=== PATIENT | female | born 1970 | race Caucasian/White ===

== ENCOUNTER 2020-04-06 23:18 | Emergency (ER) | payer SELFPAY ==
[2020-04-06 23:26] VITALS: BP 163/97; PULSE 96; RESP 14; TEMP 36.1; O2SAT 98; BMI 30.9
--- NOTE | 2020-04-06 23:29 | XR_ITS ---
WS: [id number] LEFT FOOT: 3 VIEW(S) TECHNIQUE: AP, oblique and lateral. HISTORY: pain COMPARISON: 02/25/2018 No acute fracture or dislocation. Moderate degenerative changes at the first metatarsophalangeal joint with a remote avulsion fracture versus osteophyte involving the proximal first toe. Similar to the prior study. Moderate size calcane al spur. No soft tissue abnormality or bone destruction. XR/XR foot LT min 3V* [id number] IMPRESSION: No acute fracture identified.
[2020-04-06 23:35] VITALS: BP 164/104; PULSE 100; RESP 22; TEMP 36.7
--- NOTE | 2020-04-06 23:47 | W.ED.LOWEXIN ---
HPI - Extremity Injury (Lower) General: Chief Complaint: Extremity Injury, Lower Stated Complaint: foot pain Time Seen by Provider: 04/06/20 23:27 Source: patient Mode of arrival: ambulatory Limitations: no limitations History of Present Illness: HPI Narrative: had three metal shelves fall onto foot earlier today while at work MD complaint: foot injury Onset (ago): hour(s) Injury: Left: foot Type of Injury: blunt Place: work Severity: severe Relieving factors: nothing Exacerbating factors: weight bearing, movement and palpation Context: direct blow Associated symptoms: Reports no associated symptoms Other symptoms: none Treatments prior to arrival: other (tramadol, tylenol, ice, elevation) Review of Systems Musc: Reports: extremity pain (L foot) [facility] PFSH: Medical History (Updated 04/06/20 @ 23:52 by CYNDI Rivera) Anxiety disorder Social History Smoking and tobacco status: current every day smoker Physical Exam Const: COMMON NORMALS: patient oriented x3, no limitations and alert GENERAL APPEARANCE: cooperative and in distress (in pain) Extremity: OTHER: TTP over R 1st MCP joint Neuro: COMMON NORMALS: patient oriented x3 and no sensory deficits noted SENSORIUM/ORIENTATION: Yes alert Skin: COMMON NORMALS: no rashes or lesions noted GENERAL SKIN EXAM: no rashes or lesions noted Course Vital Signs: Vital signs: Vital Signs Temperature 98.0 F 04/06/20 23:35 Pulse Rate 100 04/06/20 23:35 Respiratory Rate 22 H 04/06/20 23:35 Blood Pressure 164/104 04/06/20 23:35 Pulse Oximetry 98 04/06/20 23:26 MDM - Extremity Injury (Lower) Imaging Data^: R foot XR: My impression: no acute fxs visualized; she does have old fx to affected area from 2018 but I do not see any acute changes today Discharge Plan Discharge Patient Disposition: Home, Self-Care Clinical Impression: Crush injury of left foot Qualifiers: Encounter type: initial encounter Qualified Code(s): S97.82XA - Crushing injury of left foot, initial encounter Condition: Stable Prescriptions: New hydrocodone-acetaminophen 5-325 mg tablet 1 tab PO Q6H PRN (Reason: pain) Qty: 10 RF: 0 No Action alprazolam 0.5 mg tablet 0.5 mg PO TID PRN (Reason: anxiety) 30 Days Qty: 70 RF: 1 Discharge Orders: Discharge Order (Routine); Ordered 04/06/20 Ordered By: Bharti Katz Referrals: Fermin Francois MD [Primary Care Provider] - Activity Restrictions/Additional Instructions: Please follow up with primary care next week for continued or worsening pain. Weight bearing as tolerated. Continue to ice and elevate as much as possible. Coding Level of Care Code ED Center Medical Director for Maki Barron
[2020-04-07] MEDS: ketorolac 60 mg/2 mL INJ IM (00:14)
[2020-04-07] MEDS: HYDROcodone-acetaminophen 5-325 mg Tablet 1 TAB PO (00:14)
== END 2020-04-07 00:28 | disposition home or self-care (01) ==
PROVIDERS: Emergency Provider Physician Assistant; PCP Family Medicine
DX: S97.82XA Crushing injury of left foot, initial encounter (principal); W20.8XXA Other cause of strike by thrown, projected or falling object, initial encounter; F17.210 Nicotine dependence, cigarettes, uncomplicated
CPT/HCPCS: 12345; 73630; 96372; 99281; 99283; E0114; J1885

== ENCOUNTER → 2021-05-29 12:08 | Outpatient (BNVA) | payer OTHER, SELFPAY | PROVIDERS: PCP Family Medicine; Visit Provider Family Medicine | DX: R05 Cough (principal); Z20.822 Contact with and (suspected) exposure to COVID-19 | CPT/HCPCS: 87635 ==

== ENCOUNTER → 2022-04-24 10:56 | Outpatient (BNVA) | payer SELFPAY | PROVIDERS: PCP Family Medicine; Visit Provider Family Medicine | DX: M23.203 Derangement of unspecified medial meniscus due to old tear or injury, right knee (principal); X58.XXXA Exposure to other specified factors, initial encounter | CPT/HCPCS: 73562 ==

== ENCOUNTER → 2023-03-20 15:04 | Outpatient (BNVA) | payer SELFPAY | PROVIDERS: PCP Family Medicine; Visit Provider Family Medicine | DX: E66.9 Obesity, unspecified (principal); F41.9 Anxiety disorder, unspecified; F41.1 Generalized anxiety disorder; E03.8 Other specified hypothyroidism | CPT/HCPCS: 80053; 84439; 84443; 85025 ==

== ENCOUNTER → 2024-10-28 15:04 | Outpatient (BNVA) | payer SELFPAY | PROVIDERS: PCP Family Medicine; Visit Provider Family Medicine | DX: E03.8 Other specified hypothyroidism (principal) | CPT/HCPCS: 80053; 84443; 85025 ==